=== PATIENT | male | born 1945 | race Caucasian/White ===

== ENCOUNTER 2017-05-06 09:14 | Day surgery (SDC) | payer OTHER ==
[2017-04-29 12:12] VITALS: BMI 25.0
[2017-05-06] MEDS ORDERED: PROPOFOL 20 ML ONE ×2 (12:58)
[2017-05-06] MEDS ORDERED: fentaNYL CITRATE 250 MCG/5 ML VIAL ONE (12:58)
[2017-05-06] MEDS ORDERED: ROCURONIUM BROMIDE 50 MG/5 ML VIAL ONE (12:59)
[2017-05-06] MEDS ORDERED: MIDAZOLAM HCL 2 MG/2 ML SINGLE DOSE VIAL ONE (12:59)
[2017-05-06] MEDS ORDERED: THROMBIN (BOVINE) 5,000 UNIT VIAL TP ONE ×2 (13:22→15:43)
[2017-05-06] MEDS ORDERED: GELATIN, ABSORBABLE 100 EACH SPONGE TP ONE ×2 (13:23→15:44)
[2017-05-06] MEDS ORDERED: ONDANSETRON 4 MG/2 ML VIAL ONE ×2 (13:46→16:58)
[2017-05-06] MEDS ORDERED: ceFAZolin SODIUM 1 GM VIAL ONE (13:46)
[2017-05-06] MEDS ORDERED: DEXAMETHASONE SOD PHOSPHATE 4 MG/1 ML VIAL ONE (13:46)
[2017-05-06] MEDS ORDERED: LIDOCAINE HCL 2% JELLY (5 ML/TUBE) ONE (13:46)
[2017-05-06] MEDS ORDERED: ePHEDrine SULFATE 50 MG/1 ML AMPULE ONE (14:15)
[2017-05-06] MEDS ORDERED: GLYCOPYRROLATE 0.2 MG/1 ML VIAL ONE (15:40)
[2017-05-06] MEDS ORDERED: BUPIVACAINE HCL 0.25% 125 MG/50 ML VIAL ONE (15:45)
[2017-05-06] MEDS ORDERED: BUPIVACAINE HCL/PF 0.25% (2.5MG/ML) 10 ML VIAL IJ ONE (15:49)
[2017-05-06] MEDS ORDERED: PROMETHAZINE HCL 25 MG/1 ML VIAL IVPB PRN (16:05)
[2017-05-06] MEDS ORDERED: ONDANSETRON 4 MG/2 ML VIAL IVPUSH PRN (16:05)
[2017-05-06] MEDS ORDERED: oxyCODONE HCL 5 MG TABLET PO PRN ×2 (16:05)
[2017-05-06] MEDS ORDERED: morphine CARPU-JECT 4 MG/1 ML DISP.SYRIN IM PRN (16:07)
[2017-05-06] MEDS ORDERED: LACTATED RINGERS SOLUTION 1,000 ML IV SCH (16:15)
[2017-05-06] MEDS ORDERED: SODIUM CHLORIDE 0.45% 1,000 ML IV SCH (16:15)
--- NOTE | 2017-05-06 17:40 | OP ---
DATE OF OPERATION: 05/06/2017 PREOPERATIVE DIAGNOSES: 1. Chronic right lower extremity lumbar radiculopathy. 2. Intervertebral disk displacement, lumbar spine. POSTOPERATIVE DIAGNOSES: 1. Chronic right lower extremity lumbar radiculopathy. 2. Intervertebral disk displacement, lumbar spine. PROCEDURE PERFORMED: Right microlumbar diskectomy at L2-3. SURGEON: Chace Roblero MD TOGGLER: MONE Coburn ANESTHESIA: General. INDICATION: Patient is a 72-year-old male with severe and persistent right lower extremity radicular pain for approximately 6 months' duration. This has been refractory to management with multiple oral medications including narcotics, epidural steroid injections, and physical therapy. He remains with severe symptoms and unrelenting pain. He is indicated for operative decompression. Risks, benefits, and alternatives of the surgery were discussed in detail with the patient and family. Informed consent was obtained. DESCRIPTION OF PROCEDURE: The patient was brought into the operating room via stretcher, and general endotracheal anesthesia was administered by the anesthesiologist. The patient was then flipped into the prone position onto a padded Kam frame. All bony prominences were padded. A fluoroscopic C-arm was draped in to allow for intraoperative lateral fluoroscopic radiographs. The back was then prepped and draped in the usual sterile fashion. A timeout was performed, and prophylactic IV antibiotics were administered. A localizing radiograph was taken with a spinal needle. Appropriate incision was then made at the midline, and dissection was carried down to the level of the fascia. The fascia was then split with electrocautery on the right side, exposing the L2 lamina. A hemilaminotomy of the L2 lamina was performed with minimal medial facetectomy and foraminotomy, encompassing the entirety of the disk space and down into the pedicle of L3. A microscope was then brought in. The ligamentum flavum was excised. A large disk herniation was identified and excised. Excellent decompression of the nerve root was noted. Hemostasis was achieved. The wound was then copiously irrigated. The deep fascia was closed using No. 1 Vicryl suture. The deep dermal tissue approximated with 2-0 Vicryl suture. The skin was closed with a running 2-0 nylon suture. MONE Coburn, was necessary throughout the case, who properly assisted in retraction of the neural elements and the diskectomy portion of the procedure. This could not have been done without a skilled surgical appliances salesperson. Hira [id number]
[2017-05-06 18:06] VITALS: TEMP 97.8
[2017-05-06 18:09] VITALS: BP 121/74; PULSE 74
[2017-05-06] MEDS ORDERED: oxyCODONE HCL 5 MG TABLET ONE (18:16)
--- NOTE | 2017-05-08 11:39 | PATH ---
Surgical Pathology Report Patient Name: RUSS TAYLOR Med. Rec. #: [id number] /Age/Gender: 1945 (Age: 72) / M Account: [id number] Location: [facility] Taken: 05/06/2017 Received: 05/06/2017 Reported: 05/08/2017 Physicians: Chace Roblero M.D. Specimen(s) Received L2-3 DISC RIGHT Clinical History Lumbar radiculopathy Final Diagnosis INTERVERTEBRAL DISC, L2-3 RIGHT, PARTIAL EXCISION: PORTIONS OF INTERVERTEBRAL DISC. Electronically Signed Brigido Johnson M.D. Gross Description Received in formalin labeled "right L2-3 disc," is a 2.4 x 2.0 x 0.3 cm aggregate of nunez fragments of fibrocartilaginous tissue. The specimen is entirely submitted in one cassette. 05/07/201705/07/2017
== END 2017-05-06 18:46 | disposition home or self-care (01) ==
LOC: FASU 09:14
PROVIDERS: ATTEND Orthopaedic Surgery Orthopaedic Surgery of the Spine
PROC: 01NB0ZZ Release Lumbar Nerve, Open Approach (ICD-10-PCS; principal; 2017-05-06 13:30)
DX: M51.16 Intervertebral disc disorders with radiculopathy, lumbar region (principal)
CPT/HCPCS: 72100-TC-FY; 82962; 88304-TC; 94760